=== PATIENT | female | born 1945 | race Caucasian/White ===

== ENCOUNTER → 2019-11-19 | Outpatient (CLI) | payer MEDICARE ==
--- NOTE | 2019-11-19 13:27 | NM ---
EXAMINATION TYPE: NM bone 3 phase DATE OF EXAM: 11/19/2019 COMPARISON: Right knee x-ray October 29, 2019. HISTORY: History of bilateral knee replacements and 11 years ago presents with focal right knee pain for last 2-3 months. Triple phase bone scintigraphy was performed following the injection of 23.6 mCi Tc 99m MDP. Immedia te images and 5.5 hours post injection images acquired. Imaging is performed of the bilateral knees. FINDINGS: Dynamic arterial phase imaging shows increased uptake to the right knee centered medial proximal tibi al level. Soft tissue phase images shows increased uptake surrounding the tibial prosthesis on the ri ght versus opposite left side. Delayed phase images shows similar increased radiotracer uptake surrou nding the right proximal tibial prosthesis. Corresponding x-ray shows suspicious lucent area proximal tibial metaphysis medially. IMPRESSION: Scintigraphic along with radiographic findings show asymmetric three-phase increased radi otracer uptake as detailed above. I suspect focal loosening of the tibial portion of the prosthesis. Acute infection is not excluded however.
== END | disposition home or self-care (01) ==
LOC: RADNMMAIN 07:17
PROVIDERS: ATTEND Orthopaedic Surgery
DX: T84.84XD Pain due to internal orthopedic prosthetic devices, implants and grafts, subsequent encounter (principal); Z96.651 Presence of right artificial knee joint; Z88.7 Allergy status to serum and vaccine
CPT/HCPCS: 78315; A9503

== ENCOUNTER → 2019-12-21 | Outpatient (CLI) | payer MEDICARE | END | disposition home or self-care (01) | LOC: LABWHC1 09:51 | PROVIDERS: ATTEND Orthopaedic Surgery | DX: Z01.812 Encounter for preprocedural laboratory examination (principal) | CPT/HCPCS: 87070 ==

== ENCOUNTER 2020-02-14 10:16 | Inpatient (IN) | payer MEDICARE ==
[2020-02-11 08:48] VITALS: BMI 23.6
--- NOTE | 2020-02-13 09:55 | HP ---
HISTORY AND PHYSICAL REASON FOR ADMISSION: Surgery 02/14/2020 HISTORY OF PRESENT ILLNESS: Astrid Mclain is a 75-year-old patient seen with a painful right total knee arthroplasty consistent with asymptomatic loosening. We discussed options. She elected to proceed with revision right total knee arthroplasty. Consent regarding the procedure was obtained. Medical clearance was provided by Dr. Jordin Bush. PAST MEDICAL HISTORY: Hypertension. PAST SURGICAL HISTORY: Bilateral total knee arthroplasty, total hip arthroplasty. DAILY MEDICATIONS: Dows and vitamins. ALLERGIES: TETANUS. SOCIAL HISTORY: She denies tobacco use. PHYSICAL EXAMINATION: Evaluation right knee range of motion is -5/6 to 110 degrees. There is an effusion present. There is no warmth, erythema, or evidence for infective process. Ligaments stable. Hip rotation without pain. Distal neurovascular exam is intact. Previous labs revealed no significant abnormality. Previous bone scan revealed probable loosening of the tibial component. Recent x-rays revealed loosening of the tibial component. IMPRESSION: 1. Painful/aseptic loosening, right total knee arthroplasty. 2. Hypertension. PLAN: Revision right total knee arthroplasty. Surgery 02/14/2020. MMODL / IJN: [id number] /
[~2020-02-14 10:16] MED LIST: ACETAMINOPHEN TAB 500 MG TAB PO ONE; MELOXICAM 7.5 MG TAB PO ONE; ROPIVACAINE 246.25 MG, EPINEPHrine 0.5 MG, KETOROLAC 30 MG, cloNIDine HCL/PF 80 MCG, WA... MISCELLANE ONE; TRANEXAMIC ACID 1,000 MG in SODIUM CHLORIDE 0.9% 100 ML IVPB ONE
[2020-02-14] MEDS ORDERED: ONDANSETRON 4 MG/2 ML VIAL IVP ONE (13:53)
[2020-02-14] MEDS ORDERED: LACTATED RINGERS 1,000 ML IV ONE ×2 (13:53→16:07)
[2020-02-14] MEDS ORDERED: DEXAMETHASONE SOD PHOSPHATE 10 MG/ML 1 ML VIAL IV ONE (13:53)
[2020-02-14] MEDS ORDERED: fentaNYL (PF) 50 MCG/ML 2 ML AMP IV ONE (14:02)
[2020-02-14] MEDS ORDERED: MIDAZOLAM 2 MG/2 ML VIAL IV ONE (14:02)
[2020-02-14] MEDS ORDERED: ePHEDrine SULFATE/0.9% NACL/PF 50 MG/5 ML SYRINGE IV ONE (14:26)
[2020-02-14] MEDS ORDERED: GLYCOPYRROLATE 0.2 MG/ML 2 ML VIAL ONE (14:26)
[2020-02-14] MEDS ORDERED: NEOSTIGMINE 1 MG/ML 10 ML VIAL ONE (14:26)
[2020-02-14] MEDS ORDERED: PROPOFOL 10 MG/ML 20 ML VIAL IV ONE (14:26)
[2020-02-14] MEDS ORDERED: ROCURONIUM BROMIDE 10 MG/ML 5 ML VIAL IV ONE (14:26)
[2020-02-14] MEDS ORDERED: MIDAZOLAM 2 MG/2 ML VIAL ONE (14:26)
[2020-02-14] MEDS ORDERED: fentaNYL (PF) 50 MCG/ML 2 ML AMP ONE (14:26)
[2020-02-14] MEDS ORDERED: SUCCINYLCHOLINE CHLORIDE 100 MG/5 ML SYR IV ONE (14:26)
[2020-02-14] MEDS ORDERED: TRANEXAMIC ACID 1,000 MG/10 ML VIAL ONE (14:26)
[2020-02-14] MEDS ORDERED: SODIUM CHLORIDE 0.9% 100 ML BAG ONE (14:26)
[2020-02-14] MEDS ORDERED: ROPIVACAINE 0.2%-NS ON-Q PUMP 1,090 MG, EMPTY PAIN BALL 1 EACH MISCELLANE PRN (14:32)
--- NOTE | 2020-02-14 14:32 | P.ANPRN ---
Procedure Note - Anesthesia - Nerve Block Performed Right Adductor Canal Infusion Time Out Performed: Yes Date of Procedure: 02/14/20 Procedure Start Time: 14:01 Procedure Stop Time: 14:12 Location of Patient: PreOp Indication: Requested by Surgeon Specifically requested for management of pain by DrErica: Jose Armando Sterling Sedation Type: Sedate with meaningful contact maintained Preparation: Sterile Prep, Sterile Dressing Position: Supine Catheter: Indwelling Needle Types: Pajunk Needle Gauge: 21 Ultrasound used to visualize needle placement: Yes Ultrasound used to observe medication spread: Yes Injectate: 0.5% Ropivacaine (see comment for volume) (20) Blood Aspirated: No Pain Paresthesia on Injection Noted: No Resistance on Injection: Normal Image Stored and Saved: Yes Events: Uneventful and Well Tolerated
[2020-02-14] MEDS ORDERED: NALOXONE 0.4 MG/ML 1 ML VIAL IV PRN (17:13)
[2020-02-14] MEDS ORDERED: ONDANSETRON 4 MG/2 ML VIAL IVP PRN (17:13)
[2020-02-14] MEDS ORDERED: HYDROmorphone 0.5 MG/0.5 ML SYRINGE IVP PRN ×3 (17:13)
[2020-02-14] MEDS ORDERED: HYDROcodone/APAP 5-325MG 1 EACH TAB PO PRN (17:13)
--- NOTE | 2020-02-14 17:13 | P.OP ---
Date of Procedure: 02/14/20 Preoperative Diagnosis: Painful right total knee arthroplasty Postoperative Diagnosis: Painful/loosened right total knee arthroplasty Procedure(s) Performed: Revision right total knee arthroplasty Implants: 1. Depuy Size 4 right TC 3 cemented femur with a 75 mm x 14 mm fluted stem and a 31 mm full porous coated femoral sleeve with a 8 mm posterior lateral augment and 4 mm posterior medial augment 2. Depuy Size 3 MBT revision cemented rotating tibial platform with a 53 mm porous-coated metaphyseal sleeve and a 75 mm x 14 mm fluted stem 3. Depuy Sigma rotating platform TC 3 size 4 22.5 mm poly-thin tibial tray Anesthesia: GETA, regional (Adductor canal catheter), local Surgeon: Jose Armando Sterling Investigation Specialist #1: Rohit Sierra Estimated Blood Loss (ml): 60 Pathology: none sent Condition: stable Disposition: PACU Indications for Procedure: 75-year-old patient seen with painful right total knee arthroplasties consistent with aseptic loosening. We discussed revision total knee arthroplasty. Patient was agreeable and consent was obtained. Operative Findings: see description of procedure Description of Procedure: The patient is taken to the operative suite after having an adductor canal catheter placed by the department of anesthesia for postoperative pain management. The patient see preoperative antibiotics and TXA. The patient underwent a general anesthetic by the department of anesthesia. A well-padded tourniquet placed proximal right thigh. The right lower extremity was prepped and draped in the normal sterile orthopedic fashion. The extremity elevated and tourniquet insufflated to 300. An incision was made over the previous cicatrix sharply through skin. A medial arthrotomy was performed. The patella was everted and knee flexed. There was some mild normal-appearing synovial fluid. At this point we debrided some thick scar tissue. We began working on removing the femoral component came out without much difficulty at all. There was large cystic lesion along the medial femoral condyle consistent with chronic aseptic loosening. We now removed the polyethylene tibial tray. We now began working on removing the tibial component and a came out very easily. There was massive cystic erosive changes of the bone consistent with chronic aseptic loosening. The entire posterior wall was gone. Most of the anterior wall was gone. The medial lateral zhang were intact the clavicle ligaments were intact. I began meticulously debriding out all the cystic tissue and soft tissue. We now began reaming down the tibial canal until reached a 14. We now began broaching for our tibial sleeve. We now placed a trial tibial component utilizing an appropriate tibial sleeve for fixation given the massive bone loss. We now began working on the femoral side. We began intramedullary reaming to a 14 which gave us good stability intramedullary early. We now makes freshen up cuts of the distal femur noting the need for augments posteriorly. We now went ahead and placed a trial femoral component position. We now began trialing tibial trays until we reached 22.5 which seemed to give us good stability. At this point we removed all trial components. We irrigated the wound out copiously with pulse lavage mechanical irrigation. We now assembled all the components for implantation of the back table. We now mixed methylmethacrylate. We now placement methacrylate just behind the tibial tray and we did pack some of the cystic lesions with some cadaver allograft cancellous bone. We now Down our tibial component until the sleeve engaged and gave us fixation. We now place some of the lacrimal behind the femoral component making shunt placed on the poor sleep. We now introduced at an tapped and the position. Removing excess methyl methacrylate. We now introduced our 22.5 mm rotating platform tibial tray. I took the knee into full extension and then full flexion making sure removed any excess methyl methacrylate. The previous patella was stable and did seem to track well and did not feel the need to revise it. We now held the knee in full extension. I used local analgesia infiltrated soft tissues for postoperative pain management. When the methyl methacrylate had hardened we released the tourniquet. Additional hemostasis achieved electrocautery. Wound was again irrigated with pulse lavage mechanical irrigation. The extensor mechanism was repaired with #3 Vicryl. I checked the repair with full flexion- extension very good stable repair. The subcu soft tissues repaired with Vicryl and the skin was repaired with exofin skin glue. Sterile dressings were applied. The patient was awakened, transferred to a bed and taken recovery stable condition. Osman DUARTE assisted with this complex procedure.
[2020-02-14] MEDS: HYDROmorphone 1 MG/ML 1 ML SYRINGE IVP ONE ×2 (17:30→17:41)
[2020-02-14] MEDS ORDERED: HYDROmorphone 1 MG/ML 1 ML SYRINGE IVP ONE (18:02)
[2020-02-14] MEDS ORDERED: HYDROmorphone 0.5 MG/0.5 ML SYRINGE SQ ONE (18:22)
[2020-02-14] MEDS ORDERED: LIDOCAINE 2% (PF) 20 MG/ML 10 ML AMP IV ONE (18:40)
[2020-02-14] MEDS ORDERED: SODIUM CHLORIDE 0.9% 1,000 ML IV ONE ×2 (19:05)
--- NOTE | 2020-02-14 19:33 | XR ---
Right knee HISTORY: Status post right knee arthroplasty 2 views of the right knee Patient is status post right knee arthroplasty. There is anatomic alignment. Lucency is present in th e soft tissues. IMPRESSION: Orthopedic follow-up
[2020-02-14] MEDS ORDERED: SENNOSIDES-DOCUSATE SODIUM 1 EACH TAB PO SCH (21:00)
[2020-02-14] MEDS: SODIUM CHLORIDE 0.9% 1,000 ML IV SCH (22:09)
[2020-02-14] MEDS: traMADol 50 MG TAB PO SCH ×2 (22:10→22:56)
[2020-02-14] MEDS: ENOXAPARIN 30 MG/0.3 ML SYRINGE SQ SCH (22:10)
[2020-02-15] MEDS: HYDROcodone/APAP 7.5-325MG 1 EACH TAB PO PRN ×2 (05:38→10:48)
--- NOTE | 2020-02-15 06:58 | P.PN ---
Progress Note - Text Progress Note Date: 02/15/20 Postoperative day # 1 status post total knee arthroplasty, under general endotracheal anesthesia, and adductor canal catheter placed for postoperative analgesia, currently at ropivacaine 0.2% 8 mL per hour and continuous infusion, visual analogue scale is 3-4/10, patient using oral pain medication for breakthrough pain. Assessment and plan= Acute postoperative pain, adductor canal catheter for pain control, pain is well controlled we'll continue the same management.
[2020-02-15 07:50] VITALS: BP 150/72; PULSE 66; RESP 18; TEMP 98.4
[2020-02-15 08:17] LABS: Basophils % (A) 0 %; Eosinophils % (A) 0 %; HCT 35.5 % (34.0-46.0); HGB 11.9 gm/dL (11.4-16.0); Lymphocytes % (A) 8 %; MCH 30.7 pg (25.0-35.0); MCHC 33.5 g/dL (31.0-37.0); MCV 91.7 fL (80.0-100.0); Mean Platelet Volume 7.6; Monocytes # (A) 0.8 k/uL (0-1.0); Monocytes % (A) 7 %; Neutrophils # (A) 10.7 k/uL (1.3-7.7); Neutrophils % (A) 84 %; Platelet Count 235 k/uL (150-450); RBC 3.88 m/uL (3.80-5.40); RDW 12.1 % (11.5-15.5); WBC 12.6 k/uL (3.8-10.6)
[2020-02-15] MEDS: SODIUM CHLORIDE 0.9% 1,000 ML IV SCH (08:42)
[2020-02-15] MEDS: ENOXAPARIN 30 MG/0.3 ML SYRINGE SQ SCH (08:47)
[2020-02-15] MEDS: traMADol 50 MG TAB PO SCH ×2 (08:47→12:08)
[2020-02-15] MEDS ORDERED: MELOXICAM 7.5 MG TAB PO SCH (09:00)
--- NOTE | 2020-02-15 09:08 | P.CONS ---
History of Present Illness - History of Present Illness this is a pleasant 75 years old female past medical history of hypertension, osteoarthritis.she was admitted for right total knee arthroplasty done electively for her failed outpatient medical therapy related to her osteoarthritis. Today is postop day #1. medical consult is requested for medical management. Patient denies chest pain or dyspnea. No abdominal pain. No change in urine or bowel habits. No fever hemodynamically stable. Has mild leukocytosis of 12.6 Review of Systems CONSTITUTIONAL: No fever, no malaise, no fatigue. HEENT: No recent visual problems or hearing problems. Denied any sore throat. CARDIOVASCULAR: No orthopnea, PND, no palpitations, no syncope. PULMONARY: No shortness of breath, no cough, no hemoptysis. GASTROINTESTINAL: No diarrhea, no nausea, no vomiting, no abdominal pain. Normoactive bowel sounds. NEUROLOGICAL: No headaches, no weakness, no numbness. HEMATOLOGICAL: Denies any bleeding or petechiae. GENITOURINARY: Denies any burning micturition, frequency, or urgency. MUSCULOSKELETAL/RHEUMATOLOGICAL: Denies any joint pain, swelling, or any muscle pain. ENDOCRINE: Denies any polyuria or polydipsia. Past Medical History Past Medical History: Cancer, Hypertension, Osteoarthritis (OA) Additional Past Medical History / Comment(s): Basal cell skin cancer. Shingles 2015. "STATED MEDICINE FOR MUSCLE SPASMS." History of Any Multi-Drug Resistant Organisms: None Reported Past Surgical History: Adenoidectomy, Cholecystectomy, Hysterectomy, Joint Replacement, Tonsillectomy Additional Past Surgical History / Comment(s): Total bilateral knees, Total LT H ip. Past Anesthesia/Blood Transfusion Reactions: No Reported Reaction Past Psychological History: No Psychological Hx Reported Smoking Status: Never smoker Past Alcohol Use History: Occasional Past Drug Use History: None Reported - Past Family History Mother Family Medical History: Cancer, Rheumatoid Arthritis (RA) Additional Family Medical History / Comment(s): LUNG CANCER Father Family Medical History: Cancer Medications and Allergies Home Medications Medication Instructions Recorded Confirmed Type Diltiazem Cd [Cardizem Cd] 240 mg PO DAILY 06/13/16 02/11/20 History Multivitamins, Thera [Multivitamin] 1 tab PO DAILY 06/13/16 02/11/20 History Cyanocobalamin (Vitamin B-12) 1,000 mcg PO DAILY 02/11/20 02/11/20 History [Vitamin B-12] HYDROcodone/APAP 7.5-325MG [[place] 1 tab PO Q6HR PRN 02/11/20 02/11/20 History 7.5-325] Allergies Allergy/AdvReac Type Severity Reaction Status Date / Time Tetanus Vaccines and Toxoid Allergy Rash/Hives Verified 02/14/20 13:30 [Tetanus Vaccines & Toxoid] codeine AdvReac "get Verified 02/14/20 13:30 spacey" Physical Exam Vitals: Vital Signs Temp Pulse Resp BP Pulse Ox 02/15/20 07:00 98.4 F 66 18 150/72 95 02/15/20 01:35 98.3 F 75 20 143/66 93 L 02/14/20 19:55 97.6 F 76 18 159/71 96 02/14/20 19:00 66 16 159/70 96 02/14/20 18:45 71 16 165/72 94 L 02/14/20 18:30 66 16 179/66 94 L 02/14/20 18:15 63 16 180/67 95 02/14/20 18:00 71 16 174/77 99 02/14/20 17:45 71 16 179/81 99 02/14/20 17:30 72 16 180/77 99 02/14/20 17:19 97 F L 75 16 176/78 99 02/14/20 14:15 58 L 16 132/70 98 02/14/20 13:31 97.5 F L 63 16 156/79 99 Intake and Output 02/14/20 02/15/20 02/15/20 22:59 06:59 14:59 Intake Total 1200 450 Output Total 1160 Balance 40 450 Intake: IV 1050 Intake, IV Titration 150 450 Amount Sodium Chloride 0.9% 1, 150 400 000 ml @ 50 mls/hr IV . Q20H JULIANN Rx#:[id number] ceFAZolin 2 gm In Sodium 50 Chloride 0.9% 50 ml @ 100 mls/hr IVPB Q8HR JULIANN Rx# :[id number] Output: Urine 1100 Estimated Blood Loss 60 Other: Voiding Method Toilet Toilet Bedside Commode # Voids 2 1 Weight 76.8 kg GENERAL: The patient is alert and oriented x3, not in any acute distress. Well developed, well nourished. HEENT: Pupils are round and equally reacting to light. EOMI. No scleral icterus. No conjunctival pallor. Normocephalic, atraumatic. No pharyngeal erythema. No thyromegaly. CARDIOVASCULAR: S1 and S2 present. No murmurs, rubs, or gallops. PULMONARY: Chest is clear to auscultation, no wheezing or crackles. ABDOMEN: Soft, nontender, nondistended, normoactive bowel sounds. No palpable organomegaly. MUSCULOSKELETAL: No joint swelling or deformity. -EXTREMITIES: No cyanosis, clubbing, or pedal edema. right knee surgery site is clean with dressing is in place NEUROLOGICAL: Gross neurological examination did not reveal any focal deficits. SKIN: No rashes. No petechiae Results CBC & Chem 7: 02/15/20 07:01 Labs: Abnormal Lab Results - Last 24 Hours (Table) 02/15/20 Range/Units 07:01 WBC 12.6 H (3.8-10.6) k/uL Neutrophils # 10.7 H (1.3-7.7) k/uL Assessment and Plan Assessment: right knee osteoarthritis status post right total knee arthroplasty mild leukocytosis, mostly reactive hypertension Primary Osteoarthritis Plan: this is a pleasant 75 years old female who presents for elective right total knee arthroplasty.recommend follow-up WBC Labs and medication were reviewed.. Continue same treatment. Continue with symptomatic treatment. Resume home medication. Monitor lytes and vitals. DVT and GI prophylaxis. Further recommendations of the clinical course of the patient pain management and DVT prophylaxis as per primary surgical team we recommend patient to follow-up with her PCP in one week and patient was ins tructed with the same and she agrees thank you for consulting us
--- NOTE | 2020-02-15 11:55 | P.PN ---
Subjective Progress Note Date: 02/15/20 Principal diagnosis: Status post revision right total knee arthroplasty Patient evaluated bedside, she is resting comfortably. She does have some slight discomfort in the knee. She's ambulated with therapy. She denies any chest pain, shortness of breath, fever or chills. Objective - Vital Signs Vital signs: Vital Signs Temp 98.4 F 02/15/20 07:00 Pulse 66 02/15/20 07:00 Resp 18 02/15/20 07:00 BP 150/72 02/15/20 07:00 Pulse Ox 95 02/15/20 07:00 Intake & Output 02/14/20 02/15/20 02/15/20 18:59 06:59 18:59 Intake Total 1450 1250 Output Total 60 1100 Balance 1390 150 Weight 76.8 kg 76.8 kg Intake: IV 1450 650 Intake, IV Titration 600 Amount Sodium Chloride 0.9% 1, 550 000 ml @ 50 mls/hr IV . Q20H JULIANN Rx#:[id number] ceFAZolin 2 gm In Sodium 50 Chloride 0.9% 50 ml @ 100 mls/hr IVPB Q8HR JULIANN Rx# :[id number] Output: Urine 1100 Estimated Blood Loss 60 Other: Voiding Method Toilet Toilet Bedside Commode # Voids 2 1 - Exam Right lower extremity: Incision is clean, dry, and intact. The exofin fusion tape is in good condition. There is minimal soft tissue swelling and ecchymosis surrounding the medial and lateral aspects of the incision. Calf is soft, no tenderness with palpation. Plantar flexion, dorsiflexion, EHL, FHL are intact. Sensory exam to light touch throughout the extremity is intact, dorsal pedis pulses 2+. - Labs CBC & Chem 7: 02/15/20 07:01 Labs: Abnormal Lab Results - Last 24 Hours (Table) 02/15/20 Range/Units 07:01 WBC 12.6 H (3.8-10.6) k/uL Neutrophils # 10.7 H (1.3-7.7) k/uL Assessment and Plan Assessment: Status post revision right total knee arthroplasty Plan: Pain control, plan for discharge home on oral medication GI and DVT prophylaxis, Eliquis 2.5mg bid for 2 weeks Wound care instructions were discussed Icing and elevating techniques discussed Home physical therapy and nursing after discharge Medical recommendations Plan for discharge home today
--- NOTE | 2020-02-15 11:57 | P.DS ---
Providers Date of admission: 02/14/20 13:14 Expected date of discharge: 02/15/20 Attending physician: Jose Armando Sterling Consults: 02/14/20 17:13 Consult Physician Routine Consulting Provider: Jose A Bush Consult Reason/Comments: Medical management Do you want consulting provider notified?: Yes 02/14/20 19:24 Consult Physician Routine Consulting Provider: Isac Beltre Consult Reason/Comments: medical management Do you want consulting provider notified?: Yes Primary care physician: Jose A Bush MD Hospital Course: Date of admission: 02/14/2020 Date of discharge: 02/15/2020 Admission diagnosis: Status post revision right total knee arthroplasty Discharge diagnosis: Same Attending physician: Dr. Sterling Surgical procedures: Revision right total knee arthroplasty Brief history: Patient is a a 75-year-old female with a history of painful and loose right total knee arthroplasty. At this point patient has failed conservative treatment measures and has opted to proceed with a elective revision right total knee arthroplasty. Hospital course: Details of patient's surgery can be found in operative report. Patient tolerated the procedure well and was subsequently transported to orthopedic floor. Patient's orthopeidc and medical care was provided daily. Patient had daily laboratory tests performed for evaluation of overall blood counts. Patient had daily physical therapy to include strengthening range of motion as well as education with walker ambulation. Patient had daily CPM usage as part of their physical therapy program. Patient was treated with Lovenox for their postoperative DVT prophylaxis during their inpatient stay. Patient was noted to have a relatively uneventful postoperative course. Patient reported satisfactory pain control with oral pain medications by postoperative day 0. Patient showed satisfactory progress with physical therapy. Patient moved steadily through the program and had no difficulty meeting the goals by postoperative day 1. Given patient's otherwise satisfactory course and having met physical therapy goals, plan is to discharge patient home on postoperative day 1. Discharge condition/disposition: Patient will be discharged home in stable condition. Discharge medications: Instructions are given on resumption of patient's normal daily medications per primary care recommendation, in addition patient will be prescribed [place] 7.5 mg/325 mg, tramadol 50 mg, Colace 100 mg, Eliquis 2.5mg. Discharge instructions: 1. Wound care and infection precautions, keep incision dry and covered while showering, no lotions, creams, moisturizers. No soaking, tubs, pools, hottubs. Do not scrub over the incision. 2. Weight-bear as tolerated with walker / cane until follow-up. 3. Ice and elevate when necessary. Do not exceed 20 minutes per hour with ice pack. 4. Utilize compression sleeve until seen at first follow up appointment. 5. Visiting nursing care. 6. Home physical therapy including home CPM]. 7. Pain meds and anticoagulants per prescription. 8. Pain medication has potential to cause constipation. Increase oral fluid and fiber intake. Contact primary care provider if you have not had a bowel movement within 48 hours after discharge 9. No anti-inflammatory medication until discussed at first post operative visit, this including Motrin, Aleve, Mobic, Diclofenac 10. Follow up in office at 2 weeks postop with Osman Sierra PA-C 11. Follow up with your primary care doctor 7-10 days after discharge. 12. Contact [facility] with any questions, . Procedures: Revision right total knee arthroplasty Patient Condition at Discharge: Good Plan - Discharge Summary Discharge Rx Participant: No New Discharge Prescriptions: New Docusate [Colace] 100 mg PO DAILY #30 capsule Apixaban [Eliquis] 2.5 mg PO BID #60 tab HYDROcodone/APAP 7.5-325MG [[place] 7.5] 1 - 2 each PO Q6HR PRN #56 tab PRN Reason: Pain traMADol HCl [Ultram] 50 mg PO Q6H PRN #28 tab PRN Reason: Pain No Action Diltiazem Cd [Cardizem Cd] 240 mg PO DAILY Multivitamins, Thera [Multivitamin] 1 tab PO DAILY Cyanocobalamin (Vitamin B-12) [Vitamin B-12] 1,000 mcg PO DAILY HYDROcodone/APAP 7.5-325MG [[place] 7.5-325] 1 tab PO Q6HR PRN PRN Reason: Pain Discharge Medication List Diltiazem Cd [Cardizem Cd] 240 mg PO DAILY 06/13/16 [History] Multivitamins, Thera [Multivitamin] 1 tab PO DAILY 06/13/16 [History] Cyanocobalamin (Vitamin B-12) [Vitamin B-12] 1,000 mcg PO DAILY 02/11/20 [History] HYDROcodone/APAP 7.5-325MG [[place] 7.5-325] 1 tab PO Q6HR PRN 02/11/20 [History] Apixaban [Eliquis] 2.5 mg PO BID #60 tab 02/15/20 [Rx] Docusate [Colace] 100 mg PO DAILY #30 capsule 02/15/20 [Rx] HYDROcodone/APAP 7.5-325MG [[place] 7.5] 1 - 2 each PO Q6HR PRN #56 tab 02/15/20 [Rx] traMADol HCl [Ultram] 50 mg PO Q6H PRN #28 tab 02/15/20 [Rx] Follow up Appointment(s)/Referral(s): Jose A Bush MD [Primary Care Provider] - 1 Week (Please wear mask to appointment. Office will call with appointment time) [facility], [NON-STAFF] - Rohit Sierra PAC [PHYSICIAN WASH PLANT OPERATOR] - 03/01/20 1:50 pm Activity/Diet/Wound Care/Special Instructions: Orthopedic Discharge Instructions: 1. Wound care and infection precautions, keep incision dry and covered while showering, no lotions, creams, moisturizers. No soaking, pools, hot tubs. Do not scrub over incision. 2. Weight-bear as tolerated with walker / cane until follow-up. 3. Ice and elevate when necessary. Do not exceed 20 minutes per hour with ice pack. 4. Utilize compression sleeve until seen at first follow up appointment. 5. Pain meds and anticoagulants per prescription. 6. Pain medication has potential to cause constipation. Increase oral fluid and fiber intake. Contact primary care provider if you have not had a bowel movement within 48 hours after discharge. 7. No anti-inflammatory medication until discussed at first post operative visit, this including Motrin, Aleve, Mobic, Diclofenac. 8. Follow up in office at 2 weeks postop with Osman Sierra PA-C 9. Follow up with your primary care doctor 7-10 days after discharge. 10. Contact [facility] with any questions, [phone]. 11. *Please call [facility] once home to arrange the delivery of the continuous passive motion (CPM) machine: [phone]* Discharge Disposition: HOME WITH HOME HEALTH SERVICES
== END 2020-02-15 14:11 | disposition home health service (06) | DRG 468 ==
LOC: 2ORMAIN 13:14 → 4SSUR 17:00
PROVIDERS: ADMIT Orthopaedic Surgery; ATTEND Orthopaedic Surgery
PROC: 0SPC0JZ Removal of Synthetic Substitute from Right Knee Joint, Open Approach (ICD-10-PCS; principal; 2020-02-14 15:00)
PROC: 0SRC0J9 Replacement of Right Knee Joint with Synthetic Substitute, Cemented, Open Approach (ICD-10-PCS; principal; 2020-02-14 15:00)
DX: T84.032A Mechanical loosening of internal right knee prosthetic joint, initial encounter (principal); T84.84XA Pain due to internal orthopedic prosthetic devices, implants and grafts, initial encounter; D72.829 Elevated white blood cell count, unspecified; G89.18 Other acute postprocedural pain; I10 Essential (primary) hypertension; M19.90 Unspecified osteoarthritis, unspecified site; Z79.899 Other long term (current) drug therapy; Z85.828 Personal history of other malignant neoplasm of skin; Z90.710 Acquired absence of both cervix and uterus; Z96.652 Presence of left artificial knee joint; Z96.649 Presence of unspecified artificial hip joint; Z88.5 Allergy status to narcotic agent; Z88.7 Allergy status to serum and vaccine; Z90.49 Acquired absence of other specified parts of digestive tract; Z80.1 Family history of malignant neoplasm of trachea, bronchus and lung; Z80.9 Family history of malignant neoplasm, unspecified; Y83.1 Surgical operation with implant of artificial internal device as the cause of abnormal reaction of the patient, or of later complication, without mention of misadventure at the time of the procedure
CPT/HCPCS: 64448; 76942; 85025

== ENCOUNTER → 2020-06-01 | Outpatient (CLI) | payer MEDICARE ==
[2020-06-01 12:13] LABS: HCT 36.7 % (34.0-46.0); HGB 11.8 gm/dL (11.4-16.0); MCH 29.2 pg (25.0-35.0); MCHC 32.1 g/dL (31.0-37.0); Mean Platelet Volume 7.3; Platelet Count 338 k/uL (150-450); RBC 4.03 m/uL (3.80-5.40); RDW 12.4 % (11.5-15.5); WBC 9.3 k/uL (3.8-10.6)
[2020-06-01 21:22] LABS: Erythrocyte Sedimentation Rate 60 mm/Hr (0-30)
== END | disposition home or self-care (01) ==
LOC: LABWHC1 08:58
PROVIDERS: ATTEND Orthopaedic Surgery
DX: M25.561 Pain in right knee (principal)
CPT/HCPCS: 36415; 85027; 85652; 86140

== ENCOUNTER 2021-01-10 19:12 | Inpatient (IN) | payer MEDICARE ==
--- NOTE | 2021-01-10 19:50 | ED ---
General Adult HPI - General Chief complaint: Extremity Injury, Lower Stated complaint: Knee Pain Time Seen by Provider: 01/10/21 19:31 Source: patient, family Mode of arrival: wheelchair Limitations: no limitations - History of Present Illness Initial comments: 75-year-old female with a past medical history of hypertension, basal cell skin cancer, shingles presents to the emergency room for a chief complaint of right leg pain. Patient reports that she had a knee replacement done one year ago. States it was not healing well and she had scar tissue removed in October. Patient reports that one week ago she started to have increased pain in the calf and knee. States that at this point it is difficult to walk on the knee. Patient reports that there is also some redness in the lower leg. Patient denies any chest pain or shortness of breath. She denies any fevers at home.Patient has no other complaints at this time including shortness of breath, chest pain, abdominal pain, nausea or vomiting, headache, or visual changes. - Related Data Home Medications Medication Instructions Recorded Confirmed Diltiazem Cd [Cardizem Cd] 240 mg PO DAILY 06/13/16 01/10/21 Multivitamins, Thera [Multivitamin] 1 tab PO DAILY 06/13/16 01/10/21 Cyanocobalamin (Vitamin B-12) 1,000 mcg PO DAILY 02/11/20 01/10/21 [Vitamin B-12] Gabapentin [Neurontin] 200 mg PO HS PRN 01/10/21 01/10/21 Naproxen Sodium [Aleve] 660 mg PO BID PRN 01/10/21 01/10/21 Allergies Allergy/AdvReac Type Severity Reaction Status Date / Time Tetanus Vaccines and Toxoid Allergy Rash/Hives Verified 01/10/21 20:24 [Tetanus Vaccines & Toxoid] codeine AdvReac "get Verified 01/10/21 20:24 spacey" Review of Systems ROS Statement: Those systems with pertinent positive or pertinent negative responses have been documented in the HPI. ROS Other: All systems not noted in ROS Statement are negative. Past Medical History Past Medical History: Cancer, Hypertension, Osteoarthritis (OA) Additional Past Medical History / Comment(s): Basal cell skin cancer. Shingles 2014. "STATED MEDICINE FOR MUSCLE SPASMS." History of Any Multi-Drug Resistant Organisms: None Reported Past Surgical History: Adenoidectomy, Cholecystectomy, Hysterectomy, Joint Replacement, Tonsillectomy Additional Past Surgical History / Comment(s): Total bilateral knees, Total LT Hip. Past Anesthesia/Blood Transfusion Reactions: No Reported Reaction Past Psychological History: No Psychological Hx Reported Smoking Status: Never smoker Past Alcohol Use History: Occasional Past Drug Use History: None Reported - Past Family History Mother Family Medical History: Cancer, Rheumatoid Arthritis (RA) Additional Family Medical History / Comment(s): LUNG CANCER Father Family Medical History: Cancer General Exam Limitations: no limitations General appearance: alert, in no apparent distress Head exam: Present: atraumatic, normocephalic, normal inspection Eye exam: Present: normal appearance, PERRL, EOMI. Absent: scleral icterus, conjunctival injection, periorbital swelling ENT exam: Present: normal exam, mucous membranes moist Neck exam: Present: normal inspection. Absent: tenderness, meningismus, lymphadenopathy Respiratory exam: Present: normal lung sounds bilaterally. Absent: respiratory distress, wheezes, rales, rhonchi, stridor Cardiovascular Exam: Present: regular rate, normal rhythm, normal heart sounds. Absent: systolic murmur, diastolic murmur, rubs, gallop, clicks GI/Abdominal exam: Present: soft, normal bowel sounds. Absent: distended, tenderness, guarding, rebound, rigid Extremities exam: Present: tenderness (Tenderness to the calf and posterior knee), normal capillary refill (Capillary refill less than 2 seconds, DP pulse 2+ right lower extremity), joint swelling (mild edema of calf and knee of RLE), calf tenderness. Absent: full ROM (Patient is 90 flexion, near total extensi on) Course Vital Signs 01/10/21 19:27 Temperature 98.0 F Pulse Rate 73 Respiratory 20 Rate Blood Pressure 137/69 O2 Sat by Pulse 98 Oximetry Medical Decision Making - Medical Decision Making Vitals are stable. Patient well-appearing. HPI and physical exam as documented. Pertinent for edema and erythema noted to the left lower leg. She does have 90 flexion of the left knee. Symptoms have been ongoing for 1 week. Laboratory work does reveal mild cytosis with an elevated ESR and CRP. Patient does have some evidence of dehydration as well. Ultrasound did reveal an 11.8 x 4.4 x 5.7 complex appearance posterior to the popliteal vessels could be hemorrhagic cyst. I did touch base with Dr. Mendoza as patient's orthopedic surgeon is Dr. Sterling. He does request admission to medicine with IV antibiotics for possible cellulitis. - Lab Data Result diagrams: 01/10/21 20:28 01/10/21 20: Lab Results 01/10/21 01/10/21 01/10/21 Range/Units 20:28 20:28 20:28 WBC 11.1 H (3.8-10.6) k/uL RBC 4.21 (3.80-5.40) m/uL Hgb 12.6 (11.4-16.0) gm/dL Hct 36.9 (34.0-46.0) % MCV 87.8 (80.0-100.0) fL MCH 29.9 (25.0-35.0) pg MCHC 34.0 (31.0-37.0) g/dL RDW 12.4 (11.5-15.5) % Plt Count 314 (150-450) k/uL MPV 7.4 Neutrophils % 79 % Lymphocytes % 11 % Monocytes % 8 % Eosinophils % 1 % Basophils % 0 % Neutrophils # 8.8 H (1.3-7.7) k/uL Lymphocytes # 1.2 (1.0-4.8) k/uL Monocytes # 0.9 (0-1.0) k/uL Eosinophils # 0.1 (0-0.7) k/uL Basophils # 0.1 (0-0.2) k/uL ESR 44 H (0-20) mm/hr Sodium 140 (137-145) mmol/L Potassium 4.1 (3.5-5.1) mmol/L Chloride 104 (98-107) mmol/L Carbon Dioxide 27 (22-30) mmol/L Anion Gap 9 mmol/L BUN 26 H (7-17) mg/dL Creatinine 0.70 (0.52-1.04) mg/dL Est GFR (CKD-EPI)AfAm >90 (>60 ml/min/1.73 sqM) Est GFR (CKD-EPI)NonAf 86 (>60 ml/min/1.73 sqM) Glucose 122 H (74-99) mg/dL Plasma Lactic Acid Oscar 0.9 (0.7-2.0) mmol/L Calcium 10.0 (8.4-10.2) mg/dL Total Bilirubin 0.6 (0.2-1.3) mg/dL AST 31 (14-36) U/L ALT 14 (4-34) U/L Alkaline Phosphatase 105 (38-126) U/L C-Reactive Protein 8.5 H (<1.0) mg/dL Total Protein 7.1 (6.3-8.2) g/dL Albumin 4.1 (3.5-5.0) g/dL Disposition Clinical Impression: Leg pain, left, Leukocytosis Disposition: ADMITTED IP TO THIS HOSP Is patient prescribed a controlled substance at d/c from ED?: No Referrals: Jose A Bush MD [Primary Care Provider] - 1-2 days Time of Disposition: 22:37
[2021-01-10] MEDS ORDERED: KETOROLAC 15 MG/ML 1 ML VIAL IVP STA (20:23)
[2021-01-10 20:44] LABS: Basophils # (A) 0.1 k/uL (0-0.2); Basophils % (A) 0 %; Eosinophils # (A) 0.1 k/uL (0-0.7); Eosinophils % (A) 1 %; HCT 36.9 % (34.0-46.0); HGB 12.6 gm/dL (11.4-16.0); Lymphocytes # (A) 1.2 k/uL (1.0-4.8); Lymphocytes % (A) 11 %; MCH 29.9 pg (25.0-35.0); MCV 87.8 fL (80.0-100.0); Mean Platelet Volume 7.4; Monocytes # (A) 0.9 k/uL (0-1.0); Monocytes % (A) 8 %; Neutrophils # (A) 8.8 k/uL (1.3-7.7); Neutrophils % (A) 79 %; Platelet Count 314 k/uL (150-450); RBC 4.21 m/uL (3.80-5.40); RDW 12.4 % (11.5-15.5); WBC 11.1 k/uL (3.8-10.6)
--- NOTE | 2021-01-10 20:44 | XR ---
EXAMINATION TYPE: XR knee complete RT DATE OF EXAM: 01/10/2021 COMPARISON: 02/14/2020 HISTORY: Edema. Pain and swelling. TECHNIQUE: 3 views FINDINGS: There is right knee prosthesis. Components appear in anatomic position. I see no fracture. IMPRESSION: No complicating process seen. No change compared to recent exam.
[2021-01-10 20:54] LABS: Potassium 4.1 mmol/L (3.5-5.1)
[2021-01-10 20:57] LABS: ALT 14 U/L (4-34); AST 31 U/L (14-36); African American GFR (CKD) >90 (>60 ml/min/1.73 sqM); Albumin 4.1 g/dL (3.5-5.0); Alkaline Phosphatase 105 U/L (38-126); Anion Gap 9 mmol/L; Blood Urea Nitrogen 26 mg/dL (7-17); C Reactive Protein 8.5 mg/dL (<1.0); Carbon Dioxide 27 mmol/L (22-30); Chloride 104 mmol/L (98-107); Glucose 122 mg/dL (74-99); Non-African American GFR(CKD) 86 (>60 ml/min/1.73 sqM); Sodium 140 mmol/L (137-145); Total Bilirubin 0.6 mg/dL (0.2-1.3); Total Protein 7.1 g/dL (6.3-8.2)
[2021-01-10 21:23] LABS: Erythrocyte Sedimentation Rate 44 mm/hr (0-20)
--- NOTE | 2021-01-10 21:57 | US ---
EXAMINATION TYPE: US venous doppler duplex LE RT DATE OF EXAM: 01/10/2021 9:41 PM COMPARISON: NONE CLINICAL HISTORY: edema. Edema. Hx right knee replacement. No hx of DVT. Patient does not take blood thinners. SIDE PERFORMED: Right TECHNIQUE: The lower extremity deep venous system is examined utilizing real time linear array sonog giovanni with graded compression, doppler sonography and color-flow sonography. VESSELS IMAGED: Common Femoral Vein Deep Femoral Vein Greater Saphenous Vein * Femoral Vein Popliteal Vein Small Saphenous Vein * Proximal Calf Veins (* superficial vessels) Right Leg: No evidence of DVT in veins imaged at this time. -Hypoechoic areas seen within right groin- #1 measures 1.2 x 0.9 x 0.9 cm. #2 measures 1.2 x 1.1 x 1. 1 cm. -Hypoechoic area seen right medial thigh near distal femoral vein measuring 1.3 x 1.3 x 1.0 cm. -Complex appearance posterior to the popliteal vessels. ??from recent surgery? Complex area measures 11.8 x 4.4 x 5.7 cm. IMPRESSION: No evidence of deep vein thrombosis. There is complex area in the popliteal region that could be a hemorrhagic popliteal cyst.
[2021-01-10] MEDS ORDERED: NALOXONE 0.4 MG/ML 1 ML VIAL IV PRN (22:14)
[2021-01-10] MEDS ORDERED: ONDANSETRON 4 MG/2 ML VIAL IVP PRN (22:14)
[2021-01-10] MEDS ORDERED: ACETAMINOPHEN TAB 325 MG TAB PO PRN (22:14)
[2021-01-10] MEDS ORDERED: cefTRIAXone IN SWFI 1,000 MG/10 ML SYRINGE IVP STA (22:16)
[2021-01-10] MEDS ORDERED: SODIUM CHLORIDE 0.9% 1,000 ML IV STA (22:18)
[2021-01-10] MEDS ORDERED: FUROSEMIDE 10 MG/ML 10 ML VIAL IV STA (22:24)
[2021-01-10] MEDS: HYDROmorphone 0.5 MG/0.5 ML SYRINGE IVP PRN (22:34)
[2021-01-10] MEDS: SODIUM CHLORIDE 0.9% 1,000 ML IV SCH (22:34)
[2021-01-10] MEDS ORDERED: GABAPENTIN 100 MG CAP PO PRN (22:38)
[2021-01-11] MEDS: HYDROmorphone 0.5 MG/0.5 ML SYRINGE IVP PRN ×3 (01:26→15:38)
[2021-01-11] MEDS ORDERED: cefTRIAXone IN SWFI 1,000 MG/10 ML SYRINGE IVP SCH (09:00)
[2021-01-11] MEDS: MULTIVITAMINS, THERA 1 EACH TAB PO SCH (09:06)
[2021-01-11] MEDS: CYANOCOBALAMIN 500 MCG TAB PO SCH (09:06)
[2021-01-11] MEDS: DILTIAZEM CD 240 MG CAP.ER.24H PO SCH (09:06)
[2021-01-11] MEDS: NAPROXEN 250 MG TAB PO SCH ×3 (11:39→19:55)
[2021-01-11] MEDS: ENOXAPARIN 40 MG/0.4 ML SYRINGE SQ SCH (11:40)
[2021-01-11] MEDS: SODIUM CHLORIDE 0.9% 1,000 ML IV SCH (13:48)
--- NOTE | 2021-01-11 15:21 | CT ---
EXAMINATION TYPE: CT knee RT wo/w con DATE OF EXAM: 01/11/2021 COMPARISON: None HISTORY: Right knee pain. CT DLP: 1111.2 mGycm Automated exposure control for dose reduction was used. CONTRAST: Performed without and with IV Contrast, patient injected with 100 mL of Isovue M300. Images obtained from the mid femur to the mid tibia without and with IV contrast. There is a right knee prosthesis. Components appear in anatomic position. There is metal artifact at limits exam to some degree. There is some bone loss involving the cortex of the posterior proximal tibia. This area not well eval uated due to metal artifact. The proximal fibula appears intact. There is normal enhancement of the popliteal artery and the popliteal vein. There is some fluid colle ction posteriorly at the knee consistent with popliteal cyst that is difficult to measure because of artifact. The muscles of the upper calf appear intact. IMPRESSION: There is evidence for some destructive changes of the posterior proximal tibia adjacent to the prosth esis. Osteomyelitis is possible. There is posterior fluid at the prosthesis. This could be popliteal cyst or even abscess. The old knee x-ray exam of 05/31/2020 and 01/10/2021 are reviewed. The lucency and bone loss involving the proximal tibia especially on the posterior aspect appears to be progressing.
[2021-01-11] MEDS ORDERED: VANCOMYCIN IV PER PHARMACY 1 EACH MISC MISCELLANE PRN (17:30)
--- NOTE | 2021-01-11 17:32 | P.HPIM ---
History of Present Illness H&P Date: 01/11/21 Chief Complaint: Right knee pain Presenting complaint: Right knee pain History of presenting complaint: This is a pleasant [address] Jose A Bush. Patient said pain in the right knee for close to 16 months. 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 Sterling in 2007. Because of worsening pain and some delay because of the COVID pandemic she had it replaced in January 2020. In April 2020 knee [address] up. In the Dr. Sterling referring her to physician in the [facility] area Dr. Ayan Cabrera. She did a workup and found no infection. As the patient had been progressively getting worse. In October of this year he did surgery on the knee has scar tissue was removed. Patient did go back to see him in November of this year and he felt the pain was increasing because of increased stress on the prosthetic knee. Patient now returns to the hospital after being followed by Dr. Sterling for further workup of the knee. Which is far more painful . There was a concern about infection and patient was started on antibiotic. Patient denies any fever and chills. Very slight redness of any around the knee. Today: Sitting up in bed. Pain in the right knee. No fever no chills. Patient's IV ceftriaxone. Review of systems: Was done for constitutional, cardiovascular, GI, pulmonary. relevant finding as above Active Medications Acetaminophen (Acetaminophen Tab 325 Mg Tab) 650 mg PO Q6HR PRN PRN Reason: Mild Pain or Fever > 100.5 Cyanocobalamin (Cyanocobalamin 500 Mcg Tab) 1,000 mcg PO DAILY [facility] Last Admin: 01/11/21 09:06 Dose: 1,000 mcg Documented by: Diltiazem HCl (Diltiazem Cd 240 Mg Cap.Er.24h) 240 mg PO DAILY [facility] Last Admin: 01/11/21 09:06 Dose: 240 mg Documented by: Enoxaparin Sodium (Enoxaparin 40 Mg/0.4 Ml Syringe) 40 mg SQ DAILY [facility] Last Admin: 01/11/21 11:40 Dose: 40 mg Documented by: Gabapentin (Gabapentin 100 Mg Cap) 200 mg PO HS PRN PRN Reason: NERVE PAIN Hydromorphone HCl (Hydromorphone 0.5 Mg/0.5 Ml Syringe) 0.5 mg IVP Q3HR PRN PRN Reason: Moderate Pain Last Admin: 01/11/21 15:38 Dose: 0.5 mg Documented by: Sodium Chloride (Saline 0.9%) 1,000 mls @ 75 mls/hr IV .[id number] [facility] Last Admin: 01/11/21 13:48 Dose: Not Given Documented by: Ceftriaxone Sodium 1 gm/ (Sodium Chloride) 50 mls @ 100 mls/hr IVPB Q24H [facility] Last Admin: 01/10/21 23:08 Dose: Not Given Documented by: Multivitamins (Multivitamins, Thera 1 Each Tab) 1 each PO DAILY [facility] Last Admin: 01/11/21 09:06 Dose: 1 each Documented by: Naloxone HCl (Naloxone 0.4 Mg/Ml 1 Ml Vial) 0.2 mg IV Q2M PRN PRN Reason: Opioid Reversal Naproxen (Naproxen 250 Mg Tab) 250 mg PO TID [facility] Last Admin: 01/11/21 15:39 Dose: 250 mg Documented by: Ondansetron HCl (Ondansetron 4 Mg/2 Ml Vial) 4 mg IVP Q8HR PRN PRN Reason: Nausea And Vomiting On examination: VITAL SIGNS: 98.9, 75, 16, 132/70, 97% room air GENERAL APPEARANCE: BMI 23.7, laying in bed, comfortable HEENT: Normal external appearance of nose and ear. Oral cavity normal EYES: Pupils equal. Conjunctiva normal. NECK: JVD not raised. Mass not palpable. RESPIRATORY: Respiratory effort normal. Lungs clear to auscultation. CARDIOVASCULAR: First and second sounds normal. No edema. ABDOMEN: Soft. Liver and spleen not palpable. No tenderness. No mass palpable. PSYCHIATRY: Alert and oriented x3. Mood and affect normal. MUSCULAR skeletal: Minimal increase in local temperature on the right knee. Slight swelling of the right upper calf. Some limitation on range of motion. INVESTIGATIONS, reviewed in the clinical context: WBC 11.1 hemoglobin 12.6 ESR 44 potassium 4.1 creatinine 0.7 CRP 8.5 Coronavirus [PCR]-not detected CT of the right knee: Evidence for some destructive changes of the posterior proximal tibia adjacent of the prosthesis. Ostomy mellitus cannot be ruled out. Posterior fluid of the processes. Popliteal cyst versus abscess in the differential. Complex cyst in the area of the popliteal region. Assessment and plan: -This is a patient initially had in a patient of the right knee 2007 followed by replacement January 2020. Progressive worsening of pain. Infection workup by Dr. Ayan Cabrera was negative. Has scar tissue removed in October of this ear. Has been having increasing pain of the right knee. Computed tomography scan inconclusive. Ultrasound inconclusive infection remains in differential. On IV ceftriaxone. Add IV vancomycin. Consult ID. -Essential hypertension Continue Cardizem CD -Possible infected popliteal cyst On IV antibiotics -Primary osteoarthritis Continue medications as needed -Mild hyperglycemia from infection. No diabetes Care was discussed with the patient. Consult ID. Lovenox added for DVT prophylaxis. scheduled naproxen for anti-inflammatory effect. Past Medical History Past Medical History: Cancer, Hypertension, Osteoarthritis (OA) Additional Past Medical History / Comment(s): Basal cell skin cancer. Shingles 2015. "STATED MEDICINE FOR MUSCLE SPASMS." History of Any Multi-Drug Resistant Organisms: None Reported Past Surgical History: Adenoidectomy, Cholecystectomy, Hysterectomy, Joint Replacement, Tonsillectomy Additional Past Surgical History / Comment(s): Total bilateral knees, Total LT Hip. Past Anesthesia/Blood Transfusion Reactions: No Reported Reaction Past Psychological History: No Psychological Hx Reported Smoking Status: Never smoker Past Alcohol Use History: Occasional Past Drug Use History: None Reported - Past Family History Mother Family Medical History: Cancer, Rheumatoid Arthritis (RA) Additional Family Medical History / Comment(s): LUNG CANCER Father Family Medical History: Cancer Medications and Allergies Home Medications Medication Instructions Recorded Confirmed Type Diltiazem Cd [Cardizem Cd] 240 mg PO DAILY 06/13/16 01/10/21 History Multivitamins, Thera [Multivitamin] 1 tab PO DAILY 06/13/16 01/10/21 History Cyanocobalamin (Vitamin B-12) 1,000 mcg PO DAILY 02/11/20 01/10/21 History [Vitamin B-12] Gabapentin [Neurontin] 200 mg PO HS PRN 01/10/21 01/10/21 History Naproxen Sodium [Aleve] 660 mg PO BID PRN 01/10/21 01/10/21 History Allergies Allergy/AdvReac Type Severity Reaction Status Date / Time Tetanus Vaccines and Toxoid Allergy Rash/Hives Verified 01/10/21 20:24 [Tetanus Vaccines & Toxoid] codeine AdvReac "get Verified 01/10/21 20:24 spacey" Physical Exam Vitals: Vital Signs Temp Pulse Pulse Resp BP BP Pulse Ox 01/11/21 07:00 98.5 F 77 18 145/74 97 01/11/21 02:00 97.4 F L 92 16 162/75 97 01/11/21 00:50 98.6 F 73 18 143/86 01/10/21 19:27 98.0 F 73 20 137/69 98 Intake and Output 01/10/21 01/11/21 01/11/21 22:59 06:59 14:59 Intake Total 118 Balance 118 Intake: Oral 118 Other: Voiding Method Toilet # Voids 1 Weight 74.843 kg Results CBC & Chem 7: 01/10/21 20:28 01/10/21 20:28 Labs: Abnormal Lab Results - Last 24 Hours (Table) 01/10/21 01/10/21 Range/Units 20:28 20:28 WBC 11.1 H (3.8-10.6) k/uL Neutrophils # 8.8 H (1.3-7.7) k/uL ESR 44 H (0-20) mm/hr BUN 26 H (7-17) mg/dL Glucose 122 H (74-99) mg/dL C-Reactive Protein 8.5 H (<1.0) mg/dL Thrombosis Risk Factor Assmnt - Choose All That Apply Any of the Below Risk Factors Present?: Yes Each Factor Represents 1 point: Swollen legs (current) Other Risk Factors: Yes Each Risk Factor Represents 2 Points: Age 61-74 years Other congenital or acquired thrombophilia - If yes, enter type in comment: No Thrombosis Risk Factor Assessment Total Risk Factor Score: 3 Thrombosis Risk Factor Assessment Level: Moderate Risk
[2021-01-11] MEDS ORDERED: VANCOMYCIN 1,250 MG in SODIUM CHLORIDE 0.9% 250 ML IVPB ONE (18:00)
--- NOTE | 2021-01-11 22:48 | P.CNOR ---
History of Present Illness - [facility] Consult date: 01/11/21 Requesting physician: Jorge Gordillo Consult reason: other (Right leg pain) History of present illness: 75-year-old female presenting to the ER yesterday with progressive right leg pain and weakness. Upon seeing the patient this morning, patient is lying in bed supine states her right leg has been bothering her for weeks upon months. She says it has been getting progressively worse as far as the pain goes. She says this week she hasn't even been able to bear weight on the right leg. She says she had her right knee replaced in 2007 by . A revision was performed several years later by Dr. Sterling. She also has history of left total knee replacement in 2006. She complains of some scar tissue on the backside of the knee. She says she is not able to fully extend or flex her knee on that side. She says she is normally very active and walks and bikes and has not been able do this because the pain in the right leg. She also states she is having some pain radiating down to her right foot. She has no history of diabetes. Patient denies any falls, was recently. Patient denies any fever, chest pain, shortness of breath, vision changes, chills. Patient denies any saddle anesthesia. Patient denies any loss of bladder/bowel control. Past Medical History Past Medical History: Cancer, Hypertension, Osteoarthritis (OA) Additional Past Medical History / Comment(s): Basal cell skin cancer. Shingles 2014. "STATED MEDICINE FOR MUSCLE SPASMS." History of Any Multi-Drug Resistant Organisms: None Reported Past Surgical History: Adenoidectomy, Cholecystectomy, Hysterectomy, Joint Replacement, Tonsillectomy Additional Past Surgical History / Comment(s): Total bilateral knees, Total LT Hip. Past Anesthesia/Blood Transfusion Reactions: No Reported Reaction Past Psychological History: No Psychological Hx Reported Smoking Status: Never smoker Past Alcohol Use History: Occasional Past Drug Use History: None Reported - Past Family History Mother Family Medical History: Cancer, Rheumatoid Arthritis (RA) Additional Family Medical History / Comment(s): LUNG CANCER Father Family Medical History: Cancer Medications and Allergies Home Medications Medication Instructions Recorded Confirmed Type Diltiazem Cd [Cardizem Cd] 240 mg PO DAILY 06/13/16 01/10/21 History Multivitamins, Thera [Multivitamin] 1 tab PO DAILY 06/13/16 01/10/21 History Cyanocobalamin (Vitamin B-12) 1,000 mcg PO DAILY 02/11/20 01/10/21 History [Vitamin B-12] Gabapentin [Neurontin] 200 mg PO HS PRN 01/10/21 01/10/21 History Naproxen Sodium [Aleve] 660 mg PO BID PRN 01/10/21 01/10/21 History Allergies Allergy/AdvReac Type Severity Reaction Status Date / Time Tetanus Vaccines and Toxoid Allergy Rash/Hives Verified 01/10/21 20:24 [Tetanus Vaccines & Toxoid] codeine AdvReac "get Verified 01/10/21 20:24 spacey" Physical Examination skin inspection: Scarring present bilaterally over anterior knees. Negative for erythema on knees bilaterally. Negative for erythema on lower extremities bilaterally. Negative for any open fractures, negative for ulcers. Negative for any lesions on the lower extremities. Positive for lump on right posterior knee Palpation: Patient negative for tenderness on left lower extremity. Positive tenderness to palpation of right knee medially and laterally as well as posteriorly. Rest of right lower extremity negative for tenderness to palpation. Dorsalis pedis pulses are present 2+ bilaterally in lower extremities. Negative Homans bilaterally Range of motion: Patient has full range of motion of left lower extremity in f lexion and extension of hip as well as flexion and extension of left knee. Right knee extension- -20. Right knee flexion - 85. Full flexion and extension of hip and right lower extremity. Patient has full range of motion of feet bilaterally Sensation: Lower extremities, bilaterally sensation is fully intact. Reflexes: Negative clonus upon dorsiflexing feet bilaterally. Negative Amira's. Patellar reflexes normal Strength/motor: 5 out of 5 in left lower extremities and hip flexion, extension and knee flexion, extension as well as plantarflexion and dorsiflexion. Right lower extremity -> flexion and extension of hip - 5/5; flexion extension of knee - 4/5; plantar and dorsiflexion - 4/5 Results - Labs Labs: Abnormal Lab Results - Last 24 Hours (Table) 01/10/21 01/10/21 Range/Units 20:28 20:28 WBC 11.1 H (3.8-10.6) k/uL Neutrophils # 8.8 H (1.3-7.7) k/uL ESR 44 H (0-20) mm/hr BUN 26 H (7-17) mg/dL Glucose 122 H (74-99) mg/dL C-Reactive Protein 8.5 H (<1.0) mg/dL H & H 01/10/21 Range/Units 20:28 Hgb 12.6 (11.4-16.0) gm/dL Hct 36.9 (34.0-46.0) % Result Diagrams: 01/10/21 20:28 01/10/21 20:28 Assessment and Plan Assessment: 1. Right knee cyst; right knee abscess 2. right knee pain 3. neuropathy Plan: 1. Right knee cyst/abscess - x-ray and CT of knee performed. r/o osteomyelitis. Determine if cyst vs abscess 2. Pain Management - Stable at this time 3. Appreiciate medical management 4. Appreciate Infectious Disease management 5. GI ppx 6. DVT ppx 7. PT/OT - Weight-bearing as tolerated Time with Patient: Less than 30
[2021-01-12] MEDS: HYDROmorphone 0.5 MG/0.5 ML SYRINGE IVP PRN ×5 (00:26→21:29)
[2021-01-12] MEDS: SODIUM CHLORIDE 0.9% 1,000 ML IV SCH ×3 (02:39→16:15)
[2021-01-12] MEDS ORDERED: VANCOMYCIN 1,250 MG in SODIUM CHLORIDE 0.9% 250 ML IVPB SCH (06:00)
[2021-01-12 06:31] LABS: Basophils % (A) 1 %; Eosinophils # (A) 0.2 k/uL (0-0.7); Eosinophils % (A) 2 %; HCT 34.2 % (34.0-46.0); HGB 11.7 gm/dL (11.4-16.0); Lymphocytes # (A) 1.6 k/uL (1.0-4.8); Lymphocytes % (A) 18 %; MCH 30.2 pg (25.0-35.0); MCHC 34.1 g/dL (31.0-37.0); MCV 88.5 fL (80.0-100.0); Mean Platelet Volume 7.4; Monocytes # (A) 0.8 k/uL (0-1.0); Monocytes % (A) 10 %; Neutrophils # (A) 5.8 k/uL (1.3-7.7); Neutrophils % (A) 68 %; Platelet Count 284 k/uL (150-450); RBC 3.87 m/uL (3.80-5.40); RDW 12.2 % (11.5-15.5); WBC 8.4 k/uL (3.8-10.6)
[2021-01-12 06:45] LABS: African American GFR (CKD) >90 (>60 ml/min/1.73 sqM); Non-African American GFR(CKD) 81 (>60 ml/min/1.73 sqM)
[2021-01-12] MEDS: ENOXAPARIN 40 MG/0.4 ML SYRINGE SQ SCH (08:06)
[2021-01-12] MEDS: MULTIVITAMINS, THERA 1 EACH TAB PO SCH (08:07)
[2021-01-12] MEDS: CYANOCOBALAMIN 500 MCG TAB PO SCH (08:07)
[2021-01-12] MEDS: DILTIAZEM CD 240 MG CAP.ER.24H PO SCH (08:07)
[2021-01-12] MEDS: NAPROXEN 250 MG TAB PO SCH ×3 (08:07→21:18)
--- NOTE | 2021-01-12 13:44 | P.PN ---
Progress Note - Text Progress Note Date: 01/12/21 Chief Complaint: Right knee pain Presenting complaint: Right knee pain History of presenting complaint: This is a pleasant [address] Jose A Bush. Patient said pain in the right knee for close to 16 months. 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 Sterling in 2007. Because of worsening pain and some delay because of the COVID pandemic she had it replaced in January 2020. In April [address] knee [address]. In the Dr. Sterling referring her to physician in the [facility] area Dr. Ayan Cabrera. She did a workup and found no infection. As the patient had been progressively getting worse. In October of this year he did surgery on the knee has scar tissue was removed. Patient did go back to see him in November of this year and he felt the pain was increasing because of increased stress on the prosthetic knee. Patient now returns to the hospital after being followed by Dr. Sterling for further workup of the knee. Which is far more painful . There was a concern about infection and patient was started on antibiotic. Patient denies any fever and chills. Very slight redness of any around the knee. Patient had a computed tomography scan of the knee done. Question about ostomy mellitus. Started on IV ceftriaxone and vancomycin. Today: Patient able to go to the bathroom holding a pole. No fever no chills. Awaiting input from ID. Oral intake fair. Review of systems: Was done for constitutional, cardiovascular, GI, pulmonary. relevant finding as above Active Medications Acetaminophen (Acetaminophen Tab 325 Mg Tab) 650 mg PO Q6HR PRN PRN Reason: Mild Pain or Fever > 100.5 Cyanocobalamin (Cyanocobalamin 500 Mcg Tab) 1,000 mcg PO DAILY [facility] Last Admin: 01/12/21 08:07 Dose: 1,000 mcg Documented by: Diltiazem HCl (Diltiazem Cd 240 Mg Cap.Er.24h) 240 mg PO DAILY [facility] Last Admin: 01/12/21 08:07 Dose: 240 mg Documented by: Enoxaparin Sodium (Enoxaparin 40 Mg/0.4 Ml Syringe) 40 mg SQ DAILY [facility] Last Admin: 01/12/21 08:06 Dose: 40 mg Documented by: Gabapentin (Gabapentin 100 Mg Cap) 200 mg PO HS PRN PRN Reason: NERVE PAIN Hydromorphone HCl (Hydromorphone 0.5 Mg/0.5 Ml Syringe) 0.5 mg IVP Q3HR PRN PRN Reason: Moderate Pain Last Admin: 01/12/21 08:06 Dose: 0.5 mg Documented by: Sodium Chloride (Saline 0.9%) 1,000 mls @ 75 mls/hr IV .[id number] [facility] Last Admin: 01/12/21 11:02 Dose: 75 mls/hr Documented by: Ceftriaxone Sodium 1 gm/ (Sodium Chloride) 50 mls @ 100 mls/hr IVPB Q24H [facility] Last Admin: 01/11/21 21:40 Dose: 100 mls/hr Documented by: Vancomycin HCl 1,250 mg/ (Sodium Chloride) 250 mls @ 125 mls/hr IVPB Q12H [facility] Last Admin: 01/12/21 04:56 Dose: 125 mls/hr Documented by: Miscellaneous Information (Vancomycin Trough Due 1 Each Misc) 1 each MISCELLANE ONCE ONE Stop: 01/13/21 17:01 Multivitamins (Multivitamins, Thera 1 Each Tab) 1 each PO DAILY [facility] Last Admin: 01/12/21 08:07 Dose: 1 each Documented by: Naloxone HCl (Naloxone 0.4 Mg/Ml 1 Ml Vial) 0.2 mg IV Q2M PRN PRN Reason: Opioid Reversal Naproxen (Naproxen 250 Mg Tab) 250 mg PO TID [facility] Last Admin: 01/12/21 08:07 Dose: 250 mg Documented by: Ondansetron HCl (Ondansetron 4 Mg/2 Ml Vial) 4 mg IVP Q8HR PRN PRN Reason: Nausea And Vomiting On examination: VITAL SIGNS: 98.4, 65, 16, 136 bun 73, 98% room air GENERAL APPEARANCE:, comfortable HEENT: Normal external appearance of nose and ear. Oral cavity normal EYES: Pupils equal. Conjunctiva normal. NECK: JVD not raised. Mass not palpable. RESPIRATORY: Respiratory effort normal. Lungs clear to auscultation. CARDIOVASCULAR: First and second sounds normal. No edema. ABDOMEN: Soft. Liver and spleen not palpable. No tenderness. No mass palpable. PSYCHIATRY: Alert and oriented x3. Mood and affect normal. MUSCULAR skeletal: Minimal increase in local temperature on the right knee. Slight swelling of the right upper calf. limitation on range of motion. INVESTIGATIONS, reviewed in the clinical context: January 12: WBC 8.4 hemoglobin 11.7 creatinine 0.74 WBC 11.1 hemoglobin 12.6 ESR 44 potassium 4.1 creatinine 0.7 CRP 8.5 Coronavirus [PCR]-not detected CT of the right knee: Evidence for some destructive changes of the posterior proximal tibia adjacent of the prosthesis. Ostomy mellitus cannot be ruled out. Posterior fluid of the processes. Popliteal cyst versus abscess in the differential. Complex cyst in the area of the popliteal region. Assessment and plan: -This is a patient initially had in a patient of the right knee 2007 followed by replacement January 2020. Progressive worsening of pain. Infection workup by Dr. Ayan Cabrera was negative. Has scar tissue removed in October of this ear. Has been having increasing pain of the right knee. Computed tomography scan inconclusive. Ultrasound inconclusive infection remains in differential. On IV ceftriaxone.; vancomycin. Consult ID. -Essential hypertension Continue Cardizem CD -Possible infected popliteal cyst On IV antibiotics -Primary osteoarthritis Continue medications as needed -Mild hyperglycemia from infection. No diabetes Continued IV antibiotics. Elevated input from ID. MRI of the right knee ordered.
--- NOTE | 2021-01-12 16:21 | P.PN ---
Subjective Progress Note Date: 01/12/21 Principal diagnosis: History of right knee replacement Right knee osteoarthritis Patient was seen at bedside this morning. She was lying in bed semirecumbent and states her pain is under better control today. She says she has been able to get up and go the bathroom but can barely bear weight on that right leg. She says she still getting numbness and tingling down her right foot. As well she mentions that her some redness on the front of her lower leg. Patient denies any chest pain, shortness of breath, fever, chills, nausea, vomiting. Patient denies any loss of bowel/bladder control. Objective - Vital Signs Vital signs: Vital Signs Temp 98.4 F 01/12/21 07:00 Pulse 65 01/12/21 07:00 Resp 16 01/12/21 07:00 BP 136/73 01/12/21 07:00 Pulse Ox 98 01/12/21 07:00 Intake & Output 01/11/21 01/12/21 01/12/21 18:59 06:59 18:59 Intake Total 118 800 Balance 118 800 Intake: Intake, IV Titration 600 Amount Sodium Chloride 0.9% 1, 600 000 ml @ 75 mls/hr IV . [id number] [facility] Rx#:[id number] Oral 118 200 Other: Voiding Method Toilet Toilet # Voids 2 2 3 # Bowel Movements 1 - Exam skin inspection: Scarring present bilaterally over anterior knees. Negative for erythema on knees bilaterally. Negative for erythema on lower extremities bilaterally. Negative for any open fractures, negative for ulcers. Negative for any lesions on the lower extremities. Positive for lump on right posterior knee Palpation: Patient negative for tenderness on left lower extremity. Positive tenderness to palpation of right knee medially and laterally as well as posteriorly. Rest of right lower extremity negative for tenderness to palpation. Dorsalis pedis pulses are present 2+ bilaterally in lower extremities. Negative Homans bilaterally Range of motion: Patient has full range of motion of left lower extremity in flexion and extension of hip as well as flexion and extension of left knee. Right knee extension- -20. Right knee flexion - 85. Full flexion and extension of hip and right lower extremity. Patient has full range of motion of feet bilaterally Sensation: Lower extremities, bilaterally sensation is fully intact. Reflexes: Negative clonus upon dorsiflexing feet bilaterally. Negative Amira's. Patellar reflexes normal Strength/motor: 5 out of 5 in left lower extremities and hip flexion, extension and knee flexion, extension as well as plantarflexion and dorsiflexion. Right lower extremity -> flexion and extension of hip - 5/5; flexion extension of knee - 4/5; plantar and dorsiflexion - 4/5 - Labs CBC & Chem 7: 01/12/21 05:31 01/12/21 05:31 Labs: Abnormal Lab Results - Last 24 Hours (Table) 01/11/21 Range/Units 11:21 Procalcitonin 0.10 H (0.02-0.09) ng/mL Microbiology - Last 24 Hours (Table) 01/10/21 22:24 Blood Culture - Preliminary Blood No Growth after 24 hours 01/10/21 22:24 Blood Culture - Preliminary Blood No Growth after 24 hours Assessment and Plan Assessment: 1. Right knee cyst; right knee abscess 2. right knee pain 3. neuropathy Plan: 1. H/o right knee replacement; Right knee cyst/abscess - x-ray and CT of knee performed. r/o osteomyelitis. Determine if cyst vs abscess. MRI ordered this morning. awaiting results. Aspiration of posteriolateral knee may be needed after MRI is performed and results are in. 2. Pain Management - Stable at this time 3. Appreciate medical management/ appreciate ID management - patient on Rocephin and Vancomycin rn. Awaiting input from Infectious Disease 4. GI ppx 6. DVT ppx 7. PT/OT - Weight-bearing as tolerated Time with Patient: Less than 30
--- NOTE | 2021-01-12 17:20 | MR ---
EXAMINATION TYPE: MR knee RT wo/w con DATE OF EXAM: 01/12/2021 COMPARISON: HISTORY: Abscess, hematoma, surgery 2020, knee pain CONTRAST: Standard multiplanar, multisequence MRI departmental protocol utilizing 7 mL intravenous Gadavist rhianna olinium contrast. Exam is severely limited by the extensive metal artifact. There is a knee prosthesis. There is some s oft tissue pathologic enhancement posteriorly at the popliteal region. Bone detail is severely limite d by the metal artifact. The proximal tibia is not well evaluated. The head of the fibula appears int act. IMPRESSION: Severely limited exam. There is soft tissue pathologic enhancement at the posterior aspect of the kne e consistent with phlegmon. The tibia and the femur are not well evaluated due to metal artifact.
--- NOTE | 2021-01-12 23:08 | CONS ---
CONSULTATION DATE OF SERVICE: 01/12/2021 REASON FOR CONSULTATION: Right knee pain and a question of septic arthritis. HISTORY OF PRESENT ILLNESS: The patient is a 75-year-old female with a past medical history significant for right knee replacement initially done by Dr. Sterling in 2007. The patient apparently had the right knee arthroplasty redone with possible derangement of the initial knee, and this procedure was done in January of 2020. The patient apparently had locking up of her right knee and did have surgery in april 2020. The patient subsequently was referred to a physician out of [facility], where apparently the patient mentioned she did have 3 tests done, and those were negative for infection. The patient initially was treated conservatively. Subsequently the patient did have surgery for removal of the scar tissue in October of this year. The patient seemed to have persistent problems with right knee pain that has been progressively getting worse with intensity almost 10/10 and no radiation. Describes the pain to be sharp in nature. The patient denies having any fever or any chills. Denies any headache. No chest pain. No shortness of breath or cough. No nausea, no vomiting, no abdominal pain or any diarrhea. With these symptoms, the patient was evaluated by the ER physician. On arrival in the ER on 01/10, the patient did not have any fever on admission and no fever in the last 48 hours that the patient has been here in the hospital. The patient did have a white count of 11.1 on admission with a mild left shift with a sedimentation rate of 44. Creatinine was normal. CRP was 8.54. Kumar PCR was negative. The patient did have blood cultures drawn that have been negative. The patient did have x- rays of the knee followed by a CT that was completed yesterday. It showed evidence of some destructive changes of the posterior proximal tibia adjacent to the prosthesis; osteomyelitis possible. There is posterior fluid at the prosthesis that could be a popliteal cyst or even an abscess. Infectious Disease was consulted for further management of antibiotic therapy with concern for osteomyelitis. REVIEW OF SYSTEMS: Positive points have been mentioned in the HPI. Rest of the systems are negative. PAST MEDICAL HISTORY: Hypertension, osteoarthritis, basal cell cancer, shingles. PAST SURGICAL HISTORY: Adenoidectomy, cholecystectomy, hysterectomy, tonsillectomy, total bilateral knee, total left hip. SOCIAL HISTORY: No history of smoking. Occasionally drinks. No drug use. FAMILY HISTORY: Mother with history of rheumatoid arthritis and lung cancer. ALLERGIES: TETANUS TOXOID. MEDICATIONS: The patient is currently on Tylenol, vitamin B12, Cardizem, Lovenox, Neurontin, Dilaudid, Theragran, Narcan, naproxen, Zofran, Rocephin and vancomycin, Pharmacy to dose. PHYSICAL EXAMINATION: Blood pressure 136/73 with a pulse of 65, temperature 98.4. She is 98% on room air. General description is an elderly female lying in bed in no distress. No tachypnea or accessory muscle of respiration use. HEENT: Examination shows no pallor or scleral icterus. Oral mucous membrane is dry. NECK: Trachea is central. No thyromegaly. LUNGS: Unlabored breathing. Clear to auscultation anteriorly No wheeze or crackle. HEART: S1, S2. Regular rate and rhythm. No added sound. ABDOMEN: Soft. No tenderness. No guarding or rigidity. EXTREMITIES: No edema of the feet. The right knee area did have some swelling, minimal warmth with no redness. Neurologically the patient is awake, alert, oriented x3. Mood and affect normal. LABS: White count of 11.1, sed rate of 44. CRP of 8.5. Kumar PCR was negative. Kidney function normal. Blood culture has been negative so far. DIAGNOSTIC IMPRESSION AND PLAN: Patient presented to hospital with right knee pain in this patient whose symptoms have been going on since last year after the patient had redo of her right knee arthroplasty. Subsequently the patient did have workup by a physician at [facility]. Apparently there was no evidence of any infection. Now presenting with worsening pain. The patient does not have any fever. White count was significantly elevated, creatinine mildly elevated. Sedimentation rate and CRP with an abnormal CT and a question of possible osteomyelitis and septic arthritis. Patient currently does not look toxic, and it is imperative that we establish the microbiological diagnosis for any infection which may be growing in her right knee; hence recommend monitoring the patient closely off antibiotic therapy while drainage of this fluid is done by Orthopedics and cultures are obtained, as that will establish the diagnosis of any septic arthritis and osteomyelitis, plus we will be able to get the infective pathogen and place the patient on antibiotics. May need to compromise culture results. This has been explained in detail to the patient. PLAN: 1. Await drainage of this fluid collection, washout of the knee and cultures and possible bone biopsy. 2. Discontinue vancomycin and Rocephin. 3. Will follow her clinical condition and culture to further adjust medication if needed. Thank you for this consultation. Will follow this patient along with you. ADAMA / SETHN: [id number] / MTDD
[2021-01-13] MEDS: SODIUM CHLORIDE 0.9% 1,000 ML IV SCH ×2 (04:32→16:56)
[2021-01-13] MEDS: HYDROmorphone 0.5 MG/0.5 ML SYRINGE IVP PRN (08:01)
[2021-01-13] MEDS: DILTIAZEM CD 240 MG CAP.ER.24H PO SCH (08:01)
[2021-01-13] MEDS: ENOXAPARIN 40 MG/0.4 ML SYRINGE SQ SCH (08:01)
[2021-01-13] MEDS: CYANOCOBALAMIN 500 MCG TAB PO SCH (08:01)
[2021-01-13] MEDS: NAPROXEN 250 MG TAB PO SCH ×2 (08:01→16:58)
[2021-01-13] MEDS: MULTIVITAMINS, THERA 1 EACH TAB PO SCH (08:02)
--- NOTE | 2021-01-13 11:44 | P.PN ---
Progress Note - Text Progress Note Date: 01/13/21 Patient is seen and examined in coverage for Dr. Sterling She is doing okay today however she is very frustrated with her knee and the pain that she is having in her knee and the issues that she is having with her knee. She states that she is not getting the answer she wants. I asked her wha t she would like to do with her knee and she stated that at this time she would like to wait to see what Dr. Sterling would like to do. She does not want to go to [facility] again. She states pain in her right leg she denies any new symptoms in her right leg although nursing says that slightly more swollen today. She denies any numbness or tingling. She is unable walk on her knee secondary to the pain. She denies any fevers chills shortness of breath or chest pain at this time. 14 points review of systems completed and as stated in HPI, all other systems reviewed are negative. Patient is alert and oriented 3 appears well-nourished well-hydrated is in no acute distress. They does not appear septic. On exam the patient has no tenderness to palpation of her thoracic or lumbar spine. There is no edema or ballottement sign. Lower extremities with 5 out of 5 strength in all major muscle groups Upper extremities show 5/5 strength in all major muscle groups. There is FROM that is painless of the b/l UE and LE in all major joints. They are intact to light touch sensation in L2 to S1 nerve distribution. Patient has palpable dorsalis pedis was posterior tibial pulses. Compartments are soft and compressible. Patient shows a negative Homans, Maldonado's, negative Babinski's negative clonus bilaterally. negative straight leg raise bilaterally. No tensioning signs. Cranial nerves II through XII are grossly intact. Overall alignment is well-maintained in the sagittal coronal planes. She has swelling of her right knee which is noted posteriorly and circumferential surrounding the knee. There is some ecchymosis posteriorly, and TTP posterior. Pt unable to walk due to pain at this time. She does have good strength and good perfusion at this time. Assesment: 75 yo female s/p multiple R knee surgeries with continued pain 1. Large complex cyst vs abscess posterior knee 2. Elevated inflammatory markers 3. Possible PJI R knee Plan: Supportive care PT/OT Pain control ID recs appreciated Spoke to pt she requested that I find her options as far as somewhere to go for treatment. She would like to wait for Hallie to speak with him as well which is reasonable but in the meantime asked if I would reach out to collegues in [place] which I have done for her. I spoke with Dr. Velasquez who would accept her and treat her along side their Joint surgeon, ortho oncologist and vascular surgeons. I have relayed this to the patients nurse and they will be contacting me with what their decision is. I reiterated that I do not know the time frame with which she would get treated, as she is worried it will not be soon enough, but I told her we would make sure that she is taken care of in a timely and safe manner. She understood and was comfortable with this plan.
[2021-01-13 16:55] VITALS: BP 170/80; PULSE 68; RESP 17; TEMP 98.4
[2021-01-13] MEDS ORDERED: VANCOMYCIN TROUGH DUE 1 EACH MISC MISCELLANE ONE (17:00)
--- NOTE | 2021-01-13 17:04 | PN ---
PROGRESS NOTE DATE OF SERVICE: 01/13/2021 REASON FOR FOLLOWUP: Abnormal MRI and CT of the knee and concerning for abscess versus hematoma. INTERVAL HISTORY: Patient is currently afebrile. She is complaining of pain to the right knee area. No worsening and no improvement. No chest pain, shortness of breath or cough. No abdominal pain or diarrhea. PHYSICAL EXAMINATION: Blood pressure 152/77 with a pulse of 75, temperature 98.8. She is 93% on room air. General description: The patient is an elderly female up in the chair in no distress. Respiratory system: Unlabored breathing. Right knee is currently some swelling. No redness. No drainage. LABS: No new labs have been obtained today. Blood culture on admission has been negative so far. MRI of the knee did show evidence of fluid collection. DIAGNOSTIC IMPRESSION AND PLAN: Patient with right knee pain in this patient who did have a complicated history with multiple surgery, abnormality with evidence of a fluid collection and concern for possible abscess. Patient getting transferred to the [facility] to be evaluated by surgical team at that facility. Recommend to keep the patient off antibiotics to increase the yield of any cultures. Questions and concerns were answered in layman's terms. MMODL / IJN: [id number] / PAUL
--- NOTE | 2021-01-13 22:42 | P.DS ---
Providers Date of admission: 01/11/21 17:18 Expected date of discharge: 01/13/21 Attending physician: Isac Beltre Consults: 01/10/21 22:15 Consult Physician Routine Consulting Provider: Camilo Chan Consult Reason/Comments: L leg pain Do you want consulting provider notified?: Yes 01/11/21 11:55 Consult Physician Routine Consulting Provider: Bennett Marlow Consult Reason/Comments: possible knee infection Do you want consulting provider notified?: Yes Primary care physician: Jose A Bush MD Hospital Course: Chief Complaint: Right knee pain Presenting complaint: Right knee pain History of presenting complaint: This is a pleasant [address] Jose A Bush. Patient said pain in the right knee for close to 16 months. 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 Sterling in 2007. Because of worsening pain and some delay because of the COVID pandemic she had it replaced in January 2020. In April [address] knee [address] up. In the Dr. Sterling referring her to physician in the [facility] area Dr. Ayan Cabrera. She did a workup and found no infection. As the patient had been progressively getting worse. In October of this year he did surgery on the knee has scar tissue was removed. Patient did go back to see him in November of this year and he felt the pain was increasing because of increased stress on the prosthetic knee. Patient now returns to the hospital after being followed by Dr. Sterling for further workup of the knee. Which is far more painful . There was a concern about infection and patient was started on antibiotic. Patient denies any fever and chills. Very slight redness of any around the knee. Patient had a computed tomography scan of the knee done. Question about osteomyelitis. Started on IV ceftriaxone and vancomycin. Venous Doppler did show a complex cyst. Questionable hemorrhagic. MRI of the knee showed soft tissue pathologic enhancement of the posterior aspect of the knee possibly consistent with the phlegmon. Antibiotics were held with ID in view of further specific diagnosis. Today: Discussed the case with orthopedics Dr. Chan. It was best felt that the patient be self the best with surgical intervention. He then spoke to , at [facility] on [facility]. Patient is to be transferred there. I did talk to this patient also. Questions were answered. Discussion and discharge planning more than 35 minutes Consultation: Dr. Marlow from ID Dr. Chan from orthopedics On examination: VITAL SIGNS: 98.4, 68, 17, 132/77, 96% room air GENERAL APPEARANCE:, comfortable HEENT: Normal external appearance of nose and ear. Oral cavity normal EYES: Pupils equal. Conjunctiva normal. NECK: JVD not raised. Mass not palpable. RESPIRATORY: Respiratory effort normal. Lungs clear to auscultation. CARDIOVASCULAR: First and second sounds normal. No edema. ABDOMEN: Soft. Liver and spleen not palpable. No tenderness. No mass palpable. PSYCHIATRY: Alert and oriented x3. Mood and affect normal. MUSCULAR skeletal: Minimal increase in local temperature on the right knee. Slight swelling of the right upper calf. limitation on range of motion. INVESTIGATIONS, reviewed in the clinical context: Pro-calcitonin 0.10 January 12: WBC 8.4 hemoglobin 11.7 creatinine 0.74 WBC 11.1 hemoglobin 12.6 ESR 44 potassium 4.1 creatinine 0.7 CRP 8.5 Coronavirus [PCR]-not detected CT of the right knee: Evidence for some destructive changes of the posterior proximal tibia adjacent of the prosthesis. Ostomy mellitus cannot be ruled out. Posterior fluid of the processes. Popliteal cyst versus abscess in the differential. Complex cyst in the area of the popliteal region. Assessment and plan: -This is a patient initially had in a patient of the right knee 2007 followed by replacement January 2020. Progressive worsening of pain. Infection workup by Dr. Ayan Cabrera was negative. Has scar tissue removed in October of this ear. Has been having increasing pain of the right knee. Computed tomography scan inconclusive. Ultrasound inconclusive infection remains in differential. On IV ceftriaxone.; vancomycin.-Antibiotics discontinued per ID. Computed tomography scan/MRI of the knee suggestive of phlegmon. Patient is to be transferred to [place] in [place] for surgical intervention by -Essential hypertension Continue Cardizem CD -Primary osteoarthritis Continue medications as needed -Mild hyperglycemia from infection. No diabetes Disposition: [facility]: For high level of care Plan - Discharge Summary Discharge Rx Participant: No New Discharge Prescriptions: New Enoxaparin [Lovenox] 40 mg SQ DAILY syringe Naproxen [Naprosyn] 250 mg PO TID tab Acetaminophen Tab [Tylenol] 650 mg PO Q6HR PRN tab PRN Reason: Mild Pain Or Fever > 100.5 Continue Diltiazem Cd [Cardizem CD] 240 mg PO DAILY Multivitamins, Thera [Multivitamin (formulary)] 1 tab PO DAILY Cyanocobalamin (Vitamin B-12) [Vitamin B-12] 1,000 mcg PO DAILY Gabapentin [Neurontin] 200 mg PO HS PRN PRN Reason: NERVE PAIN Discontinued Naproxen Sodium [Aleve] 660 mg PO BID PRN PRN Reason: Pain Discharge Medication List Diltiazem Cd [Cardizem CD] 240 mg PO DAILY 06/13/16 [History] Multivitamins, Thera [Multivitamin (formulary)] 1 tab PO DAILY 06/13/16 [History] Cyanocobalamin (Vitamin B-12) [Vitamin B-12] 1,000 mcg PO DAILY 02/11/20 [History] Gabapentin [Neurontin] 200 mg PO HS PRN 01/10/21 [History] Acetaminophen Tab [Tylenol] 650 mg PO Q6HR PRN tab 01/13/21 [Rx] Enoxaparin [Lovenox] 40 mg SQ DAILY syringe 01/13/21 [Rx] Naproxen [Naprosyn] 250 mg PO TID tab 01/13/21 [Rx] Follow up Appointment(s)/Referral(s): dr nick [Other] - 1 Week Jose A Bush MD [Primary Care Provider] - As Needed Discharge Disposition: OTHER INSTITUTION NOT DEFINED
== END 2021-01-13 18:45 | disposition short-term general hospital (02) | DRG 603 ==
LOC: EC 19:12 → 6NMEDSUR 22:14 → OBSVTOIN 01-11 17:18
PROVIDERS: ADMIT Hospitalist; ATTEND Hospitalist
DX: L02.415 Cutaneous abscess of right lower limb (principal); I10 Essential (primary) hypertension; E86.0 Dehydration; Z20.822 Contact with and (suspected) exposure to COVID-19; R73.9 Hyperglycemia, unspecified; G62.9 Polyneuropathy, unspecified; M17.11 Unilateral primary osteoarthritis, right knee; Z79.899 Other long term (current) drug therapy; Z85.828 Personal history of other malignant neoplasm of skin; Z86.19 Personal history of other infectious and parasitic diseases; Z96.653 Presence of artificial knee joint, bilateral; Z96.642 Presence of left artificial hip joint; Z90.49 Acquired absence of other specified parts of digestive tract; Z90.710 Acquired absence of both cervix and uterus; Z90.89 Acquired absence of other organs; Z87.42 Personal history of other diseases of the female genital tract; Z87.19 Personal history of other diseases of the digestive system; Z98.890 Other specified postprocedural states; Z88.7 Allergy status to serum and vaccine; Z88.5 Allergy status to narcotic agent; Z80.1 Family history of malignant neoplasm of trachea, bronchus and lung; Z82.61 Family history of arthritis
CPT/HCPCS: 36415; 80053; 82565; 83018; 83520; 83605; 84145; 84630; 85025; 85652; 86140; 87040; 87635; 96374; 96375; 99285

== ENCOUNTER → 2021-02-23 | Outpatient (CLI) | payer MEDICARE | END | disposition home or self-care (01) | LOC: LABWHC1 13:38 | PROVIDERS: ATTEND Internal Medicine | DX: Z01.812 Encounter for preprocedural laboratory examination (principal); Z20.822 Contact with and (suspected) exposure to COVID-19 | CPT/HCPCS: U0003; C9803; U0005 ==

== ENCOUNTER → 2021-05-09 | Outpatient (CLI) | payer MEDICARE ==
[2021-05-09 12:04] LABS: Anisocytosis Slight; Appearance,Urine Cloudy (Clear); Basophils # (A) 0.1 k/uL (0-0.2); Basophils % (A) 0 %; Bilirubin,Urine Negative (Negative); Blood,Urine Trace (Negative); Color,Urine Yellow; Eosinophils % (A) 0 %; Glucose,Urine (UA) Negative (Negative); HCT 20.7 % (34.0-46.0); HGB 7.1 gm/dL (11.4-16.0); Ketones,Urine Negative (Negative); Leukocyte Esterase,Urine Negative (Negative); Lymphocytes # (A) 0.8 k/uL (1.0-4.8); Lymphocytes % (A) 5 %; MCH 31.6 pg (25.0-35.0); MCHC 34.5 g/dL (31.0-37.0); MCV 91.4 fL (80.0-100.0); Mean Platelet Volume 8.5; Monocytes # (A) 0.7 k/uL (0-1.0); Monocytes % (A) 5 %; Mucus,Urine Many /hpf; Neutrophils # (A) 13.5 k/uL (1.3-7.7); Neutrophils % (A) 88 %; Nitrite,Urine Negative (Negative); PH, Urine 5.5 (5.0-8.0); Platelet Count 166 k/uL (150-450); Protein,Urine 1+ (Negative); RBC 2.26 m/uL (3.80-5.40); RBC,Urine 1 /hpf (0-5); RDW 16.8 % (11.5-15.5); Specific Gravity,Urine 1.022 (1.001-1.035); Squamous Epithelial Cell,Urine 1 /hpf (0-4); Urobilinogen,Urine <2.0 mg/dL (<2.0); WBC 15.4 k/uL (3.8-10.6); WBC,Urine 4 /hpf (0-5)
[2021-05-09 12:24] LABS: ALT 12 U/L (4-34); AST 22 U/L (14-36); African American GFR (CKD) >90 (>60 ml/min/1.73 sqM); Albumin 3.6 g/dL (3.5-5.0); Albumin/Globulin Ratio 1.5; Alkaline Phosphatase 84 U/L (38-126); Anion Gap 6 mmol/L; Blood Urea Nitrogen 16 mg/dL (7-17); Calcium 9.2 mg/dL (8.4-10.2); Carbon Dioxide 27 mmol/L (22-30); Chloride 104 mmol/L (98-107); Globulin 2.4 g/dL; Glucose 97 mg/dL (74-99); LDH 631 U/L (313-618); Magnesium 2.1 mg/dL (1.6-2.3); Non-African American GFR(CKD) 86 (>60 ml/min/1.73 sqM); Potassium 3.7 mmol/L (3.5-5.1); Sodium 137 mmol/L (137-145); Total Bilirubin <0.1 mg/dL (0.2-1.3)
== END | disposition home or self-care (01) ==
LOC: LABWHC1 10:42
PROVIDERS: ATTEND Nurse Practitioner
DX: C49.9 Malignant neoplasm of connective and soft tissue, unspecified (principal)
CPT/HCPCS: 36415; 80053; 81001; 83615; 83735; 84100; 85025